=== PATIENT | male | born 1985 | race Caucasian/White ===

== ENCOUNTER 2017-03-07 17:53 | Emergency (ER) | payer SELFPAY ==
[~2017-03-07] VITALS: Ht 190.5 cm; Wt 145.0 kg
[~2017-03-07 17:53] MED LIST: ASPI81CH CHEW; NAPR500T PO; PERC5TAB12 PO; ZOFR4TAB3 SL
[2017-03-07 17:56] VITALS: BP 140/93; PULSE 72; RESP 17; TEMP 98.4; O2SAT 98
--- NOTE | 2017-03-07 18:41 | PD ---
HPI . Cough and shortness of breath for 2 days. Chief Complaint: Cold / Flu Symptoms Time Seen by Provider: 18:40 Travel History International Travel<30 days: No Contact w/Intl Traveler<30days: No Traveled to known affect area: No History of Present Illness HPI 31-year-old male with history of tobaccoism and history of gastritis when he was younger here with complaints of 2 days worth of shortness of breath and coughing. Patient says that then developed some coughing nonproductive that has been causing him pain in his chest and stomach. He denies any fever, sore throat, chills, nausea, vomiting etc. He also has some stomach discomfort. He tells me that approximately a week and a half ago he decided to take some anti- inflammatories for a tooth irritation. He was given some medications by a friend and does not know the name of it. He thinks this may have upset his stomach. He denies any melena, hematochezia or bowel changes. Guaiac was done at bedside, Solange PHELPS was present and the test was negative. PFS Past Medical History Anxiety: Yes Heart Rhythm Problems: No Cardiac Catheterization: No Cardiovascular Problems: No High Cholesterol: Yes Congestive Heart Failure: No Diabetes: No Diminished Hearing: No GERD: Yes Genitourinary: Yes (kidney stones ) Hypertension: Yes Psychiatric: Yes (hx anxiety and panic attacks) Past Surgical History Abdominal Surgery: Yes (CHANCE. INGUINAL HERNIOPLASTY A CHILD) Coronary Artery Bypass Graft: No Genitourinary Surgery: Yes Social History Alcohol Use: Yes (OCC) Tobacco Use: Yes Substance Use: Yes (MARIJUANA) Allergies-Medications (Allergen,Severity, Reaction): Coded Allergies: Lisinopril (Verified Allergy, Severe, HIVES, 10/04/16) "TATT00 LINES SWELL" Tylenol #3 (Verified Adverse Reaction, Severe, NAUSEA, 10/04/16) Reported Meds & Prescriptions Reported Meds & Active Scripts Active No Active Prescriptions or Reported Medications Review of Systems General / Constitutional: No: Fever Eyes: No: Visual changes HENT: No: Headaches Cardiovascular: No: Chest Pain or Discomfort Respiratory: Positive: Cough, Shortness of Breath Gastrointestinal: No: Abdominal Pain Genitourinary: No: Dysuria Musculoskeletal: No: Pain Skin: No Rash Neurologic: No: Weakness Psychiatric: No: Depression Endocrine: No: Polydipsia Hematologic/Lymphatic: No: Easy Bruising Physical Exam Narrative GENERAL: AAO x 3, no acute distress, Well-nourished, well-developed patient. SKIN: Warm and dry. No visible rashes or bruising. HEAD: Normocephalic and atraumatic. EYES: No scleral icterus. No injection or drainage. ENT: No nasal drainage noted. Mucous membranes pink. Airway patent. No posterior pharynx erythema, edema or exudates. TMs normal bilaterally NECK: Supple, trachea midline. No JVD. No lymphadenopathy CARDIOVASCULAR: Regular rate and rhythm without murmurs, gallops, or rubs. RESPIRATORY: Breath sounds equally diminished bilaterally. No accessory muscle use. No rhonchi or rales. Expiratory wheezing on examination. GASTROINTESTINAL: Abdomen soft, non-tender, nondistended. EXTREMITIES: No cyanosis or edema. BACK: Nontender without obvious deformity. No CVA tenderness. PSYCH: AAO x 3, normal affect. Data Data Last Documented VS Vital Signs Date Time Temp Pulse Resp B/P Pulse Ox O2 Delivery O2 Flow Rate FiO2 03/07/17 18:45 95 20 99 Room Air 03/07/17 17:56 98.4 140/93 MDM Medical Decision Making Medical Screen Exam Complete: Yes Emergency Medical Condition: Yes Medical Record Reviewed: Yes Differential Diagnosis Bronchitis, sinusitis, less likely pneumonia, less likely gastritis Narrative Course 31-year-old male with history of tobaccoism and history of gastritis when he was younger here with complaints of 2 days worth of shortness of breath and coughing. Patient says that then developed some coughing nonproductive that has been causing him pain in his chest and stomach. He denies any fever, sore throat, chills, nausea, vomiting etc. He also has some stomach discomfort. He tells me that approximately a week and a half ago he decided to take some anti- inflammatories for a tooth irritation. He was given some medications by a friend and does not know the name of it. He thinks this may have upset his stomach. He denies any melena, hematochezia or bowel changes. Guaiac was done at bedside, Solange PHELPS was present and the test was negative. Patient seen and examined. He has some wheezing on examination. I will check a chest x-ray, although I doubt any type of pneumonia. I've ordered DuoNeb. He more than likely has a bronchitis. His X-rays negative, he can be discharged home with prednisone, pro-air inhaler and Tessalon Perles. He'll need to follow-up with his primary care provider. His guaiac was negative. His abdominal examination is benign. I do not recommend any further workup. I discussed my treatment plan with him and he is in agreement. Patient verbalized understanding of instructions, questions were answered, and thanked me for their care. I advised them if their condition worsens, please return to the nearest emergency room for further care. Patient's care was transitioned over to the next provider coming on staff. He will determine disposition once the x-ray is resulted. Additional Instructions: As we discussed the cough can last 6-8 weeks. Take medications as prescribed. If you are a smoker, try to quit. Follow up with your primary care provider. If you develop sudden onset or worsening of shortness or breath, please go to the nearest emergency room. Please return to emergency department if your symptoms return or worsen. Follow up with your primary care provider. Take medications as prescribed. Scripts No Active Prescriptions or Reported Meds Condition: Stable Julee Irby Mar 07, 2017 18:41
[2017-03-07 18:45] VITALS: PULSE 95; RESP 20; O2SAT 99
[2017-03-07] MEDS ORDERED: SODIUM CHLORIDE 0.9% FLUSH 10 ML FLUSH IVF PRN (19:00)
[2017-03-07] MEDS ORDERED: RESP: ALBUTEROL 2.5 MG/IPRATROPIUM 0.5 MG NEB (SCH) INH ONE (19:00)
--- NOTE | 2017-03-07 19:19 | RADRPT ---
EXAM DATE/TIME: 03/07/2017 18:53 [facility] COMPARISON: No previous studies available for comparison. INDICATIONS : Short of breath, posterior distal chest pain. Denies injury MEDICAL HISTORY : Hypertension. SURGICAL HISTORY : None. ENCOUNTER: Initial ACUITY: 2 days PAIN SCORE: 3/10 LOCATION: Bilateral chest FINDINGS: A single view of the chest demonstrates the lungs to be symmetrically aerated without evidence of mas s, infiltrate or effusion. The cardiomediastinal contours are unremarkable. Osseous structures are intact. CONCLUSION: No acute disease. Isaiah Perales MD on March 07, 2017 at 19:17 Board Certified Radiologist. This report was verified electronically.
[2017-03-07] MEDS ORDERED: ALUMINUM/MAGNESIUM/SIMETH 30 ML CUP PO ONE (19:45)
[2017-03-07] MEDS ORDERED: LIDOCAINE VISCOUS 2% SOLN 15 ML UDC PO ONE (19:45)
[2017-03-07] MEDS ORDERED: PANTOPRAZOLE SOD 20 MG DELAYED RELEASE TAB PO ONE (19:45)
[2017-03-07] MEDS ORDERED: PRED20 PO (19:46)
[2017-03-07] MEDS ORDERED: CARA1TAB6 PO (19:46)
[2017-03-07] MEDS ORDERED: VENTAER INH (19:46)
[2017-03-07] MEDS ORDERED: PANT20 PO (19:46)
--- NOTE | 2017-03-07 19:49 | PD ---
Physical Exam Time Seen by Provider: 19:40 Data Data Last Documented VS Vital Signs Date Time Temp Pulse Resp B/P Pulse Ox O2 Delivery O2 Flow Rate FiO2 03/07/17 18:45 95 20 99 Room Air 03/07/17 17:56 98.4 140/93 Orders Chest, Single Ap (03/07/17 18:49) Sodium Chloride 0.9% Flush (Ns Flush) (03/07/17 19:00) Albuterol-Ipratropium Neb (Duoneb Neb) (03/07/17 19:00) Al-Mag Hy-Si 40-40-4 Mg/Ml Liq (Mag-Al P (03/07/17 19:45) Lidocaine 2% Viscous (Xylocaine 2% Visco (03/07/17 19:45) Pantoprazole (Protonix) (03/07/17 19:45) MDM Medical Record Reviewed: Yes Supervised Visit with DUNCAN: No Narrative Course I was asked to follow up in this patient's chest x-ray. See previous provider notes. Briefly this patient has had wheezing and cough and congestion for 2 days. On examination his wheezing bilaterally. He is not tachypneic or tachycardic. Chest x-ray is negative for pneumonia. He also endorses some left upper quadrant discomfort. He reports that he recently took some "anti- inflammatories" for tooth pain and he feels like his gastric ulcer pain is acting up. He describes it as a aching pain in left upper quadrant of the abdomen. His abdomen is soft and nontender and chest x-ray revealed no free air or so nothing to suggest a perforation. He is not currently on any antiacid producing medication so he'll be discharged with a 30 day course of Protonix. He is also requesting Carafate so he will be given a ten-day supply of that. He is being discharged with Ventolin inhaler and prednisone for bronchitis. Recommended outpatient follow-up. He is being given a GI cocktail and Protonix prior to discharge. Diagnosis Primary Impression: Bronchitis Additional Impression: Gastritis Qualified Code: K29.70 - Gastritis without bleeding, unspecified chronicity, unspecified gastritis type Additional Instruction: As we discussed the cough can last 6-8 weeks. Take medications as prescribed. If you are a smoker, try to quit. Follow up with your primary care provider. If you develop sudden onset or worsening of shortness or breath, please go to the nearest emergency room. Please return to emergency department if your symptoms return or worsen. Follow up with your primary care provider. Take medications as prescribed. Avoid [id number] naproxen/Advil/Motrin/Aleve/ibuprofen products which can aggravate "stomach ulcers." Follow-up closely with primary care physician. Med/Other Pt SpecificInfo: Prescription(s) given Scripts Pantoprazole (Protonix)20 Mg Tab20 Mg PO DAILY #30 TAB Ref 0 Prov:Lopez Billy MD 03/07/17 Albuterol 18 GM Inh (Ventolin Hfa 18 GM Inh)90 Mcg/Act Aer2 Puff INH Q4-6H PRN ( SHORTNESS OF BREATH) #1 INHALER Ref 0 Prov:Lopez Billy MD 03/07/17 Sucralfate (Carafate)1 Gm Tab1 Gm PO QID 14 Days Ref 0 On empty stomach Prov:Lopez Billy MD 03/07/17 Prednisone 20 Mg Tab20 Mg PO BID 5 Days Ref 0 Prov:Lopez Billy MD 03/07/17 Disposition: 01 DISCHARGE HOME Condition: Stable Soy Reyna Mar 07, 2017 19:49
[2017-03-07] MEDS ORDERED: predniSONE 20 MG TAB PO ONE (20:00)
== END 2017-03-07 20:22 | disposition home or self-care (01) ==
LOC: NEPD 17:53
DX: J40 Bronchitis, not specified as acute or chronic (principal); K29.70 Gastritis, unspecified, without bleeding; Z72.0 Tobacco use; I10 Essential (primary) hypertension; F41.0 Panic disorder [episodic paroxysmal anxiety]
CPT/HCPCS: 71010; 94664; 99284; J7512

== ENCOUNTER 2017-04-12 22:24 | Emergency (ER) | payer SELFPAY ==
[~2017-04-12] VITALS: Ht 188 cm; Wt 99.0 kg
[~2017-04-12 22:24] MED LIST changes: -ASPI81CH CHEW; +CARA1TAB6 PO; -NAPR500T PO; +PANT20 PO; -PERC5TAB12 PO; +PRED20 PO; +VENTAER INH; -ZOFR4TAB3 SL
[2017-04-12 22:26] VITALS: BP 179/95; PULSE 95; RESP 16; TEMP 98.1; O2SAT 99
[2017-04-12] MEDS ORDERED: AMOXICILLIN/CLAVULANATE K 875 MG TAB PO ONE (22:45)
[2017-04-12] MEDS ORDERED: KETOROLAC TROMETHAMINE 60 MG/2 ML (IM) VIAL IM ONE (22:45)
--- NOTE | 2017-04-12 22:58 | PD ---
HPI Chief Complaint: ENT Complaint Time Seen by Provider: 22:58 Travel History International Travel<30 days: No Contact w/Intl Traveler<30days: No Traveled to known affect area: No History of Present Illness HPI 31-year-old male presents to the emergency department for evaluation of right maxillary tooth pain 4 days with noted cheek swelling today. Patient states that he is having pain 8 out of 10 in this area. Denies any fever or chills. Denies any trauma to the area. Patient has had dental caries for quite some time and has not sought dental evaluation. He has no other symptoms to report. PFSH Past Medical History Anxiety: Yes Heart Rhythm Problems: No Cardiac Catheterization: No Cardiovascular Problems: No High Cholesterol: Yes Congestive Heart Failure: No Diabetes: No Diminished Hearing: No GERD: Yes Genitourinary: Yes (kidney stones ) Hypertension: Yes Psychiatric: Yes (hx anxiety and panic attacks) Immunizations Current: Yes Tetanus Vaccination: < 5 Years Influenza Vaccination: No Past Surgical History Abdominal Surgery: Yes (CHANCE. INGUINAL HERNIOPLASTY A CHILD) Coronary Artery Bypass Graft: No Genitourinary Surgery: Yes Social History Alcohol Use: Yes (OCC) Tobacco Use: Yes (PPD) Substance Use: Yes (MARIJUANA) Allergies-Medications (Allergen,Severity, Reaction): Coded Allergies: Lisinopril (Verified Allergy, Severe, HIVES, 04/12/17) "TATT00 LINES SWELL" Tylenol #3 (Verified Adverse Reaction, Severe, NAUSEA, 04/12/17) Reported Meds & Prescriptions Reported Meds & Active Scripts Active Ibuprofen 800 Mg Tab 800 Mg PO Q8H PRN Peridex Liq (Chlorhexidine Gluconate (Mouth) Liq) 0.12% Soln 15 Ml SWISH-SPIT BID Augmentin (Amoxicillin-Clavulanate) 875-125 mg Tab 875 Mg PO BID 10 Days not for use in CrCl <30 ml/min. Review of Systems Except as stated in HPI: all other systems reviewed are Neg Physical Exam Narrative GENERAL: Well-nourished, well-developed patient. SKIN: Focused skin assessment warm/dry. HEAD: Normocephalic. There is slight swelling along the right maxillary sinus. This is adjacent to her the patient has significant dental decay and gingival erythema. EYES: No scleral icterus. No injection or drainage. DENTAL: Utilize poor dentition. The right lateral incisor is broken in half. They first bicuspid on the maxillary is missing and the neighboring tooth is decayed down to the gingiva. There is gingival erythema and edema. No appreciable abscess that I can see from the inside of the mouth. No malocclusion. NECK: Supple, trachea midline. No JVD or lymphadenopathy. CARDIOVASCULAR: Regular rate and rhythm without murmurs, gallops, or rubs. RESPIRATORY: Breath sounds equal bilaterally. No accessory muscle use. GASTROINTESTINAL: Abdomen soft, non-tender, nondistended. MUSCULOSKELETAL: No cyanosis, or edema. BACK: Nontender without obvious deformity. No CVA tenderness. Data Data Last Documented VS Vital Signs Date Time Temp Pulse Resp B/P Pulse Ox O2 Delivery O2 Flow Rate FiO2 04/12/17 22:26 98.1 95 16 179/95 99 Room Air Orders Amoxicil-Clavulanate (Augmentin) (04/12/17 22:45) Ketorolac Inj (Toradol Inj) (04/12/17 22:45) MDM Medical Decision Making Medical Screen Exam Complete: Yes Emergency Medical Condition: Yes Medical Record Reviewed: Yes Differential Diagnosis Dental abscess versus sinusitis versus cellulitis versus periodontal disease versus gingivitis Narrative Course 31-year-old male presents to the emergency department for evaluation of dental pain and swelling. Patient appears without distress. Based on examination and history, this is likely dental abscess however I'm unable to visualize it on the inside the mouth. A cousin the area over the maxillary sinuses slightly edematous I will treat the patient with Augmentin in case this is more sinus exacerbated tooth pain versus dental abscess. Patient is instructed on care. He agrees to return immediately with any acute worsening symptoms. Diagnosis Primary Impression: Dental abscess Additional Impression: Dental caries Referrals: Dentist Primary Care Physician Patient Instructions: Dental Abscess (ED), General Instructions Departure Forms: Tests/Procedures, Work Release Enter return to work date: April 14, 2017 Additional Instructions: Avoid sleeping on the affected side Follow up with your primary care provider Seek dental evaluation as soon as possible Return to ED with acute worsening of symptoms Med/Other Pt SpecificInfo: Prescription(s) given Scripts Ibuprofen 800 Mg [id number] Mg PO Q8H PRN (Pain/Inflammation) #30 TAB Ref 0 Prov:Shaniqua Shah 04/12/17 Chlorhexidine Gluconate (Mouth) Liq (Peridex Liq)0.12% Soln15 Ml SWISH-SPIT BID #473 ML Ref 0 Prov:Shaniqua Shah 04/12/17 Amoxicillin-Clavulanate (Augmentin)875-125 mg [id number] Mg PO BID 10 Days Ref 0 not for use in CrCl <30 ml/min. Prov:Shaniqua Shah 04/12/17 Disposition: 01 DISCHARGE HOME Condition: Stable Shaniqua Shah April 12, 2017 22:58
[2017-04-12] MEDS ORDERED: AUGM875T PO (23:10)
[2017-04-12] MEDS ORDERED: PERI0.126 SWISH-SPIT (23:10)
[2017-04-12] MEDS ORDERED: IBUP800T23 PO (23:10)
== END 2017-04-12 23:33 | disposition home or self-care (01) ==
LOC: NEPK 22:24
DX: K04.7 Periapical abscess without sinus (principal); K02.9 Dental caries, unspecified; I10 Essential (primary) hypertension; F17.210 Nicotine dependence, cigarettes, uncomplicated; F12.90 Cannabis use, unspecified, uncomplicated
CPT/HCPCS: 96372; 99284; J1885

== ENCOUNTER 2017-04-14 21:20 | Emergency (ER) | payer SELFPAY ==
[~2017-04-14] VITALS: Ht 190.5 cm; Wt 143.0 kg
[~2017-04-14 21:20] MED LIST changes: +AUGM875T PO; -CARA1TAB6 PO; +IBUP800T23 PO; -PANT20 PO; +PERI0.126 SWISH-SPIT; -PRED20 PO; -VENTAER INH
[2017-04-14 21:21] VITALS: BP 184/92; PULSE 98; RESP 15; TEMP 97.6; O2SAT 100
--- NOTE | 2017-04-14 21:39 | PD ---
Physical Exam Time Seen by Provider: 21:36 Narrative 31yo M c/o worsening of dental abscess. Was seen here two days ago and has been taking Augmentin with worsening of symptoms. Denies fever, vomiting. Has not f/u with Dentist. Right facial swelling with worsening. Patient seen in triage. VS reviewed. Awaiting bed placement. Data Data Last Documented VS Vital Signs Date Time Temp Pulse Resp B/P Pulse Ox O2 Delivery O2 Flow Rate FiO2 04/14/17 21:21 97.6 98 15 184/92 100 Room Air MDM Supervised Visit with DUNCAN: Vesna Hodges April 14, 2017 21:39
--- NOTE | 2017-04-14 23:38 | PD ---
HPI Chief Complaint: Oral / Dental Pain or Problem Time Seen by Provider: 23:00 Travel History International Travel<30 days: No Contact w/Intl Traveler<30days: No Traveled to known affect area: No History of Present Illness HPI Patient is a 31-year-old male presents emergency primary for evaluation of right -sided facial swelling and dental pain. Patient states that he is cooperative his right canine on the maxillary side. Was here few days ago and was prescribed Augmentin states has not been improving. He has not been able to follow up with a dentist as he states he cannot afford to do so. Denies any fever denies any nausea vomiting chest pain shortness of breath or difficulty swallowing. PFSH Past Medical History Anxiety: Yes Heart Rhythm Problems: No Cardiac Catheterization: No Cardiovascular Problems: No High Cholesterol: Yes Congestive Heart Failure: No Diabetes: No Diminished Hearing: No GERD: Yes Genitourinary: Yes (kidney stones ) Hypertension: Yes Psychiatric: Yes (hx anxiety and panic attacks) Immunizations Current: Yes Tetanus Vaccination: < 5 Years Influenza Vaccination: No Past Surgical History Abdominal Surgery: Yes (CHANCE. INGUINAL HERNIOPLASTY A CHILD) Coronary Artery Bypass Graft: No Genitourinary Surgery: Yes Social History Alcohol Use: Yes (OCC) Tobacco Use: Yes (PPD) Substance Use: Yes (MARIJUANA) Allergies-Medications (Allergen,Severity, Reaction): Coded Allergies: Lisinopril (Verified Allergy, Severe, HIVES, 04/12/17) "TATT00 LINES SWELL" Tylenol #3 (Verified Adverse Reaction, Severe, NAUSEA, 04/12/17) Reported Meds & Prescriptions Reported Meds & Active Scripts Active Probiotic (Lactobacillus Acidophilus) 1 Cap Cap 1 Cap PO DAILY Ibuprofen 800 Mg Tab 800 Mg PO Q6HR PRN Tramadol (Tramadol HCl) 50 Mg Tab 50 Mg PO Q6H PRN Clindamycin (Clindamycin HCl) 300 Mg Cap 300 Mg PO Q6H 10 Days Review of Systems Except as stated in HPI: all other systems reviewed are Neg Physical Exam Narrative GENERAL: Well-nourished, well-developed patient. SKIN: Focused skin assessment warm/dry. HEAD: Normocephalic. EYES: No scleral icterus. No injection or drainage. ENT: Right-sided facial swelling minimal watery. No discrete abscesses felt. Multiple caries. TMs clear bilaterally, no lymphadenopathy pre-or postauricular or cervical, no sublingual tenderness. NECK: Supple, trachea midline. No JVD or lymphadenopathy. CARDIOVASCULAR: Regular rate and rhythm without murmurs, gallops, or rubs. RESPIRATORY: Breath sounds equal bilaterally. No accessory muscle use. GASTROINTESTINAL: Abdomen soft, non-tender, nondistended. MUSCULOSKELETAL: No cyanosis, or edema. BACK: Nontender without obvious deformity. No CVA tenderness. Data Data Last Documented VS Vital Signs Date Time Temp Pulse Resp B/P Pulse Ox O2 Delivery O2 Flow Rate FiO2 04/14/17 21:38 16 04/14/17 21:21 97.6 98 184/92 100 Room Air Orders Complete Blood Count With Diff (04/14/17 23:48) Comprehensive Metabolic Panel (04/14/17 23:48) Prothrombin Time / Inr (Pt) (04/14/17 23:48) Act Partial Throm Time (Ptt) (04/14/17 23:48) Ecg Monitoring (04/14/17 23:48) Iv Access Insert/Monitor (04/14/17 23:48) Oximetry (04/14/17 23:48) Oxygen Administration (04/14/17 23:48) Morphine Inj (Morphine Inj) (04/15/17 00:00) Sodium Chloride 0.9% Flush (Ns Flush) (04/15/17 00:00) Blood Culture (04/14/17 23:48) Ct Facial Bones W Iv Contrast (04/15/17 ) Clindamycin Inj (Cleocin Inj) (04/15/17 00:15) Iohexol 350 Inj (Omnipaque 350 Inj) (04/15/17 01:21) Labs Laboratory Tests Test 04/15/17 00:00 White Blood Count 8.7 TH/MM3 Red Blood Count 5.02 MIL/MM3 Hemoglobin 14.2 GM/DL Hematocrit 41.2 % Mean Corpuscular Volume 82.1 FL Mean Corpuscular Hemoglobin 28.4 PG Mean Corpuscular Hemoglobin 34.5 % Concent Red Cell Distribution Width 13.1 % Platelet Count 158 TH/MM3 Mean Platelet Volume 8.3 FL Neutrophils (%) (Auto) 60.6 % Lymphocytes (%) (Auto) 28.2 % Monocytes (%) (Auto) 6.8 % Eosinophils (%) (Auto) 3.9 % Basophils (%) (Auto) 0.5 % Neutrophils # (Auto) 5.2 TH/MM3 Lymphocytes # (Auto) 2.4 TH/MM3 Monocytes # (Auto) 0.6 TH/MM3 Eosinophils # (Auto) 0.3 TH/MM3 Basophils # (Auto) 0.0 TH/MM3 CBC Comment DIFF FINAL Differential Comment Prothrombin Time 10.6 SEC Prothromb Time International 1.0 RATIO Ratio Activated Partial 26.8 SEC Thromboplast Time Sodium Level 137 MEQ/L Potassium Level 3.9 MEQ/L Chloride Level 102 MEQ/L Carbon Dioxide Level 27.2 MEQ/L Anion Gap 8 MEQ/L Blood Urea Nitrogen 8 MG/DL Creatinine 0.88 MG/DL Estimat Glomerular Filtration 102 ML/MIN Rate Random Glucose 96 MG/DL Calcium Level 8.8 MG/DL Total Bilirubin 0.6 MG/DL Aspartate Amino Transf 23 U/L (AST/SGOT) Alanine Aminotransferase 50 U/L (ALT/SGPT) Alkaline Phosphatase 66 U/L Total Protein 8.0 GM/DL Albumin 4.0 GM/DL [facility] Medical Decision Making Medical Screen Exam Complete: Yes Emergency Medical Condition: Yes Differential Diagnosis Cellulitis, abscess, dental caries. Narrative Course Patient was roomed emergency department, no discrete abscess was felt. CAT scan of her face was ordered, patient was discussed with Dr. Raymundo for evaluation after CAT scan. Was given clindamycin 900 mg IV. Scripts Lactobacillus Acidophilus (Probiotic)1 Cap Cap1 Cap PO DAILY #10 CAP Ref 0 Prov:Nicki Raymundo DO 04/15/17 Ibuprofen 800 Mg [id number] Mg PO Q6HR PRN (PAIN) #40 TAB Ref 0 Prov:Nicki Raymundo DO 04/15/17 Tramadol 50 Mg Tab50 Mg PO Q6H PRN (PAIN) #10 TAB Ref 0 Prov:Nicki Raymundo DO 04/15/17 Clindamycin 300 Mg [id number] Mg PO Q6H 10 Days Ref 0 Prov:Nicki Raymundo DO 04/15/17 Ian Moise MD April 14, 2017 23:38
[2017-04-15] MEDS ORDERED: SODIUM CHLORIDE 0.9% FLUSH 10 ML FLUSH IVF PRN
[2017-04-15] MEDS ORDERED: MORPHINE SULFATE 4 MG/ML INJ IV PUSH ONE
[2017-04-15] MEDS ORDERED: CLINDAMYCIN INJ 900 MG in SODIUM CHLORIDE 0.9% INJ 100 ML IV ONE (00:15)
[2017-04-15 00:18] LABS: AUTOMATED NEUTROPHIL # 5.2 TH/MM3 (1.8-7.7); BASOPHIL % 0.5 % (0.0-2.0); EOSINOPHIL # 0.3 TH/MM3 (0-0.4); EOSINOPHIL % 3.9 % (0.0-4.0); HEMATOCRIT 41.2 % (39.0-51.0); HEMO FLAGS DIFF FINAL; LYMPH % 28.2 % (9.0-44.0); LYMPHOCYTE # 2.4 TH/MM3 (1.0-4.8); MEAN CELL VOLUME 82.1 FL (80.0-100.0); MEAN CORPUSCULAR HEMOGLOBIN 28.4 PG (27.0-34.0); MEAN CORPUSCULAR HGB CONC 34.5 % (32.0-36.0); MONO % 6.8 % (0.0-8.0); NEUT % 60.6 % (16.0-70.0); PLATELET COUNT 158 TH/MM3 (150-450); RED BLOOD COUNT 5.02 MIL/MM3 (4.50-5.90); RED CELL DISTRIBUTION WIDTH 13.1 % (11.6-17.2); WHITE BLOOD COUNT 8.7 TH/MM3 (4.0-11.0)
[2017-04-15 00:30] LABS: APTT (PATIENT) 26.8 SEC (24.3-30.1); PROTHROMBIN TIME - PATIENT 10.6 SEC (9.8-11.6)
[2017-04-15 01:00] LABS: ANION GAP 8 MEQ/L (5-15); AST (GOT) 23 U/L (15-37); BICARBONATE 27.2 MEQ/L (21.0-32.0); BLOOD UREA NITROGEN 8 MG/DL (7-18); CHLORIDE 102 MEQ/L (98-107); GLOMERULAR FILTRATION RATE 102 ML/MIN (>89); POTASSIUM 3.9 MEQ/L (3.5-5.1); SODIUM (NA) 137 MEQ/L (136-145)
[2017-04-15 01:03] LABS: ALKALINE PHOSPHATASE 66 U/L (45-117); ALT (GPT) 50 U/L (12-78); TOTAL BILIRUBIN ADULT 0.6 MG/DL (0.2-1.0)
[2017-04-15] MEDS ORDERED: IOHEXOL 350 MG/ML 10 ML VIAL (for RAD DIAG) IV ONE (01:21)
--- NOTE | 2017-04-15 01:41 | RADRPT ---
EXAM DATE/TIME: 04/15/2017 01:21 [facility] COMPARISON: No previous studies available for comparison. INDICATIONS : Right facial swelling. Possible dental abscess. IV CONTRAST: 100 cc Omnipaque 350 (iohexol) IV RADIATION DOSE: 57.90 CTDIvol (mGy) MEDICAL HISTORY : None SURGICAL HISTORY : None. ENCOUNTER: Initial ACUITY: 2 days PAIN SCALE: 10/10 LOCATION: Right facial TECHNIQUE: Volumetric scanning of the facial bones was performed. Using automated exposure control and adjustme nt of the mA and/or kV according to patient size, radiation dose was kept as low as reasonably achiev able to obtain optimal diagnostic quality images. FINDINGS: ORBITS: The orbital and infraorbital osseous structures are intact. The retroconal structures have a normal configuration. No radiopaque foreign bodies are seen. NASAL BONE: The nasal bone and maxillary spine are intact ZYGOMATIC ARCHES: Symmetric without evidence of fracture. SINUSES: The maxillary, ethmoid and frontal sinuses are intact. No air-fluid levels seen but there is some mu cosal thickening in the left maxillary sinus. NASAL CAVITY: The nasal septum is intact and midline. The lacrimal ducts are intact. SOFT TISSUES: No radiopaque foreign bodies seen. No soft-tissue swelling is seen. INTRACRANIAL: No intracranial air seen. CRIBIFORM PLATE: Grossly intact. CONCLUSION: Normal examination except mild mucosal thickening in the left maxillary sinus. Escobar Guillen MD on April 15, 2017 at 1:38 Board Certified Radiologist. This report was verified electronically.
[2017-04-15] MEDS ORDERED: TRAM50TA PO (01:52)
[2017-04-15] MEDS ORDERED: IBUP800T23 PO (01:52)
[2017-04-15] MEDS ORDERED: CLIN1CAP6 PO (01:52)
[2017-04-15] MEDS ORDERED: LACTCAP8 PO (01:54)
--- NOTE | 2017-04-15 01:54 | PD ---
Physical Exam Date Seen by Provider: April 15, 2017 Data Data Last Documented VS Vital Signs Date Time Temp Pulse Resp B/P Pulse Ox O2 Delivery O2 Flow Rate FiO2 04/14/17 21:38 16 04/14/17 21:21 97.6 98 184/92 100 Room Air Orders Complete Blood Count With Diff (04/14/17 23:48) Comprehensive Metabolic Panel (04/14/17 23:48) Prothrombin Time / Inr (Pt) (04/14/17 23:48) Act Partial Throm Time (Ptt) (04/14/17 23:48) Ecg Monitoring (04/14/17 23:48) Iv Access Insert/Monitor (04/14/17 23:48) Oximetry (04/14/17 23:48) Oxygen Administration (04/14/17 23:48) Morphine Inj (Morphine Inj) (04/15/17 00:00) Sodium Chloride 0.9% Flush (Ns Flush) (04/15/17 00:00) Blood Culture (04/14/17 23:48) Ct Facial Bones W Iv Contrast (04/15/17 ) Clindamycin Inj (Cleocin Inj) (04/15/17 00:15) Iohexol 350 Inj (Omnipaque 350 Inj) (04/15/17 01:21) Labs Laboratory Tests Test 04/15/17 00:00 White Blood Count 8.7 TH/MM3 Red Blood Count 5.02 MIL/MM3 Hemoglobin 14.2 GM/DL Hematocrit 41.2 % Mean Corpuscular Volume 82.1 FL Mean Corpuscular Hemoglobin 28.4 PG Mean Corpuscular Hemoglobin 34.5 % Concent Red Cell Distribution Width 13.1 % Platelet Count 158 TH/MM3 Mean Platelet Volume 8.3 FL Neutrophils (%) (Auto) 60.6 % Lymphocytes (%) (Auto) 28.2 % Monocytes (%) (Auto) 6.8 % Eosinophils (%) (Auto) 3.9 % Basophils (%) (Auto) 0.5 % Neutrophils # (Auto) 5.2 TH/MM3 Lymphocytes # (Auto) 2.4 TH/MM3 Monocytes # (Auto) 0.6 TH/MM3 Eosinophils # (Auto) 0.3 TH/MM3 Basophils # (Auto) 0.0 TH/MM3 CBC Comment DIFF FINAL Differential Comment Prothrombin Time 10.6 SEC Prothromb Time International 1.0 RATIO Ratio Activated Partial 26.8 SEC Thromboplast Time Sodium Level 137 MEQ/L Potassium Level 3.9 MEQ/L Chloride Level 102 MEQ/L Carbon Dioxide Level 27.2 MEQ/L Anion Gap 8 MEQ/L Blood Urea Nitrogen 8 MG/DL Creatinine 0.88 MG/DL Estimat Glomerular Filtration 102 ML/MIN Rate Random Glucose 96 MG/DL Calcium Level 8.8 MG/DL Total Bilirubin 0.6 MG/DL Aspartate Amino Transf 23 U/L (AST/SGOT) Alanine Aminotransferase 50 U/L (ALT/SGPT) Alkaline Phosphatase 66 U/L Total Protein 8.0 GM/DL Albumin 4.0 GM/DL [facility] Medical Record Reviewed: Yes Supervised Visit with DUNCAN: No Narrative Course Patient signed out to me by Dr. Moise at change of shift. Patient pending CT of the facial bones with IV contrast. Please see previous providers chart for full hpi Patient is a 31-year-old male who presents to emergency room with complaints of right-sided dental pain and facial swelling. Patient reports that he was seen here a few days ago and was started on Augmentin, reports that he still has pain to his tooth, he cannot afford to her dentist so he is here for evaluation. CBC & BMP Diagram 04/15/17 00:00 Labs are essentially unremarkable, ct shows: Last Impressions Maxillofacial CT 04/15/17 0000 Signed Impressions: Service Date/Time: March 01:21 - CONCLUSION: Normal examination except mild mucosal thickening in the left maxillary sinus. Escobar Guillen MD Patient was given IV clindamycin while emergency room. Plan to discharge patient home with a script for clindamycin. Patient will have to follow up with dental clinic for further dental workup. Signs and symptoms of when to return to the emergency room was reviewed patient in detail. A copy of patient' s CT report was given to him for follow-up with his physician. Diagnosis Primary Impression: Dental caries Patient Instructions: Narcotic given in the ED Departure Forms: Tests/Procedures, Work Release Enter return to work date: April 19, 2017 Additional Instruction: Please follow up with a dentist as soon as possible Please take antibiotics as prescribed Return to emergency room if symptoms worsen or progress Please follow up with all cultures from today Med/Other Pt SpecificInfo: Prescription(s) given Scripts Lactobacillus Acidophilus (Probiotic)1 Cap Cap1 Cap PO DAILY #10 CAP Ref 0 Prov:Nicki Raymundo DO 04/15/17 Ibuprofen 800 Mg [id number] Mg PO Q6HR PRN (PAIN) #40 TAB Ref 0 Prov:Nicki Raymundo DO 04/15/17 Tramadol 50 Mg Tab50 Mg PO Q6H PRN (PAIN) #10 TAB Ref 0 Prov:Nicki Raymundo DO 04/15/17 Clindamycin 300 Mg Fen020 Mg PO Q6H 10 Days Ref 0 Prov:Nicki Raymundo DO 04/15/17 Disposition: 01 DISCHARGE HOME Condition: Stable Nicki Raymundo DO April 15, 2017 01:54
[2017-04-16] MEDS ORDERED: ACET500L PO (02:15)
[2017-04-16] MEDS ORDERED: IBUP-232 PO (02:17)
== END 2017-04-15 02:06 | disposition home or self-care (01) ==
LOC: NEPD 21:20 → NEPC 04-15 02:06
DX: K02.9 Dental caries, unspecified (principal); I10 Essential (primary) hypertension; F17.210 Nicotine dependence, cigarettes, uncomplicated; F12.90 Cannabis use, unspecified, uncomplicated
CPT/HCPCS: 70487; 80053; 85025; 85610; 85730; 87040; 96365; 96375; 99285; J2270; Q9967

== ENCOUNTER 2017-04-15 23:41 | Emergency (ER) | payer SELFPAY ==
[~2017-04-15] VITALS: Ht 185.4 cm; Wt 99.0 kg
[~2017-04-15 23:41] MED LIST changes: -AUGM875T PO; +CLIN1CAP6 PO; +LACTCAP8 PO; -PERI0.126 SWISH-SPIT; +TRAM50TA PO
[2017-04-15 23:42] VITALS: BP 177/91; PULSE 102; RESP 16; TEMP 98.5; O2SAT 98
--- NOTE | 2017-04-16 01:04 | RADRPT ---
EXAM DATE/TIME: 04/16/2017 00:52 [place] COMPARISON: No previous studies available for comparison. INDICATIONS : Sore throat. MEDICAL HISTORY : None. SURGICAL HISTORY : None. ENCOUNTER: Initial ACUITY: 1 week PAIN SCORE: 4/10 LOCATION: Right neck FINDINGS: Two view examination of the soft tissues of the neck demonstrates the hypopharyngeal airway to have a grossly normal configuration. The trachea is midline. No radiopaque foreign bodies are seen. CONCLUSION: Normal examination. Escobar Guillen MD on April 16, 2017 at 1:03 Board Certified Radiologist. This report was verified electronically.
[2017-04-16] MEDS ORDERED: IBUPROFEN 600 MG TAB PO ONE (02:15)
[2017-04-16] MEDS ORDERED: ACET500L PO (02:15)
--- NOTE | 2017-04-16 02:15 | PD ---
HPI Chief Complaint: Edema Time Seen by Provider: 00:14 Travel History International Travel<30 days: No Contact w/Intl Traveler<30days: No Traveled to known affect area: No History of Present Illness HPI 31yo M presents to the ED with c/o progressive right facial swelling that is now going into his right neck. Denies any fever, drooling, sob, chest pain, n/v , abdominal pain. Pt was just here for right facial swelling and had CT facial yesterday that showed normal except mild mucosal thickening in left maxillary sinus. Pt had normal WBC. Pt able to eat and drink. States dental pain has resolved. Pain in right face has improved. Pt is on clindamycin. PFSH Past Medical History Anxiety: Yes Heart Rhythm Problems: No Cardiac Catheterization: No Cardiovascular Problems: No High Cholesterol: Yes Congestive Heart Failure: No Diabetes: No Diminished Hearing: No GERD: Yes Genitourinary: Yes (kidney stones ) Hypertension: Yes Psychiatric: Yes (hx anxiety and panic attacks) Immunizations Current: Yes Past Surgical History Abdominal Surgery: Yes (CHANCE. INGUINAL HERNIOPLASTY A CHILD) Coronary Artery Bypass Graft: No Genitourinary Surgery: Yes Social History Alcohol Use: Yes (OCC) Tobacco Use: Yes (PPD) Substance Use: Yes (MARIJUANA) Allergies-Medications (Allergen,Severity, Reaction): Coded Allergies: Lisinopril (Verified Allergy, Severe, HIVES, 04/12/17) "TATT00 LINES SWELL" Tylenol #3 (Verified Adverse Reaction, Severe, NAUSEA, 04/12/17) Reported Meds & Prescriptions Reported Meds & Active Scripts Active Ibuprofen 600 Mg Tab 600 Mg PO Q8H PRN Probiotic (Lactobacillus Acidophilus) 1 Cap Cap 1 Cap PO DAILY Ibuprofen 800 Mg Tab 800 Mg PO Q6HR PRN Tramadol (Tramadol HCl) 50 Mg Tab 50 Mg PO Q6H PRN Clindamycin (Clindamycin HCl) 300 Mg Cap 300 Mg PO Q6H 10 Days Review of Systems Except as stated in HPI: all other systems reviewed are Neg Physical Exam Narrative GENERAL: 31yo M not in distress. SKIN: Focused skin assessment warm/dry. HEAD: Atraumatic. Normocephalic. EYES: Pupils equal and round. No scleral icterus. No injection or drainage. ENT: No nasal bleeding or discharge. Mucous membranes pink and moist. Do not appreciate asymmetry. No periapical abscess in mouth. NECK: No swelling. Right anterior cervical lymph node. CARDIOVASCULAR: Regular rate and rhythm. No murmur appreciated. RESPIRATORY: No accessory muscle use. Clear to auscultation. Breath sounds equal bilaterally. GASTROINTESTINAL: Abdomen soft, non-tender, nondistended. MUSCULOSKELETAL: No obvious deformities. No clubbing. No cyanosis. No edema. NEUROLOGICAL: Awake and alert. No obvious cranial nerve deficits. Motor grossly within normal limits. Normal speech. PSYCHIATRIC: Appropriate mood and affect; insight and judgment normal. Data Data Last Documented VS Vital Signs Date Time Temp Pulse Resp B/P Pulse Ox O2 Delivery O2 Flow Rate FiO2 04/15/17 23:42 98.5 102 16 177/91 98 Room Air Orders Soft Tissue Neck (04/16/17 ) Ibuprofen (Motrin) (04/16/17 02:15) MDM Medical Decision Making Medical Screen Exam Complete: Yes Emergency Medical Condition: Yes Interpretation(s) Last Impressions Soft Tissue Neck X-Ray 04/16/17 0000 Signed Impressions: Service Date/Time: Sunday, April 16, 2017 00:52 - CONCLUSION: Normal examination. Escobar Guillen MD Differential Diagnosis Lymph adenopathy vs. retropharyngeal abscess vs. epiglottitis Narrative Course 31yo well appearing male here with c/o swelling in right neck. I do not appreciate swelling in neck on my exam. Xray soft tissue normal. Pt is eating and drinking normally. No SOB or drooling. Reassured pt and informed pt to follow up with PMD. Return precautions given. Diagnosis Primary Impression: Neck pain Patient Instructions: General Instructions Departure Forms: Tests/Procedures Additional Instructions: Please follow up with your PMD in 1-2 days. Return to the ED if symptoms worsen. Med/Other Pt SpecificInfo: Prescription(s) given Scripts Ibuprofen 600 Mg [id number] Mg PO Q8H PRN (PAIN) #20 TAB Ref 0 Prov:Lorena De Guzman DO 04/16/17 Disposition: 01 DISCHARGE HOME Condition: Stable Lorena De Guzman April 16, 2017 02:15
[2017-04-16] MEDS ORDERED: IBUP-232 PO (02:17)
== END 2017-04-16 02:30 | disposition home or self-care (01) ==
LOC: NEPE 23:41
DX: M54.2 Cervicalgia (principal)
CPT/HCPCS: 70360; 99283

== ENCOUNTER 2017-04-19 04:47 | Emergency (ER) | payer SELFPAY ==
[~2017-04-19] VITALS: Ht 185.4 cm; Wt 99.0 kg
[~2017-04-19 04:47] MED LIST changes: +IBUP-232 PO
[2017-04-19 04:49] VITALS: BP 162/95; PULSE 100; RESP 16; TEMP 98; O2SAT 99
[2017-04-19 05:02] VITALS: BP 175/112; PULSE 111; RESP 19; O2SAT 100
[2017-04-19 05:34] VITALS: O2SAT 100
[2017-04-19 05:38] LABS: AUTOMATED NEUTROPHIL # 4.7 TH/MM3 (1.8-7.7); BASOPHIL # 0.1 TH/MM3 (0-0.2); BASOPHIL % 0.7 % (0.0-2.0); EOSINOPHIL # 0.4 TH/MM3 (0-0.4); EOSINOPHIL % 4.5 % (0.0-4.0); HEMATOCRIT 44.1 % (39.0-51.0); HEMO FLAGS DIFF FINAL; LYMPH % 37.2 % (9.0-44.0); LYMPHOCYTE # 3.4 TH/MM3 (1.0-4.8); MEAN CELL VOLUME 82.8 FL (80.0-100.0); MEAN CORPUSCULAR HEMOGLOBIN 28.1 PG (27.0-34.0); MEAN CORPUSCULAR HGB CONC 33.9 % (32.0-36.0); MONO % 5.9 % (0.0-8.0); NEUT % 51.7 % (16.0-70.0); PLATELET COUNT 239 TH/MM3 (150-450); RED BLOOD COUNT 5.33 MIL/MM3 (4.50-5.90); RED CELL DISTRIBUTION WIDTH 13.3 % (11.6-17.2); WHITE BLOOD COUNT 9.1 TH/MM3 (4.0-11.0)
[2017-04-19 06:03] LABS: ANION GAP 9 MEQ/L (5-15); AST (GOT) 30 U/L (15-37); BLOOD UREA NITROGEN 10 MG/DL (7-18); CHLORIDE 104 MEQ/L (98-107); GLOMERULAR FILTRATION RATE 77 ML/MIN (>89); POTASSIUM 3.6 MEQ/L (3.5-5.1); SODIUM (NA) 140 MEQ/L (136-145)
[2017-04-19 06:06] LABS: ALKALINE PHOSPHATASE 66 U/L (45-117); ALT (GPT) 61 U/L (12-78); TOTAL BILIRUBIN ADULT 0.3 MG/DL (0.2-1.0)
[2017-04-19] MEDS ORDERED: KETOROLAC TROMETHAMINE 30 MG/ML (IVP) VIAL IV PUSH ONE (07:15)
[2017-04-19] MEDS ORDERED: SODIUM CHLOR 0.9% 1000 ML INJ 1,000 ML IV ONE (07:15)
--- NOTE | 2017-04-19 07:21 | PD ---
HPI Chief Complaint: Abdominal Pain Time Seen by Provider: 05:15 Travel History International Travel<30 days: No Contact w/Intl Traveler<30days: No Traveled to known affect area: No History of Present Illness HPI The patient is a 31 year old male who presents to the [facility] emergency department with a history of abdominal pain that began 2 days ago. It comes and goes. It has been associated with loose stool. He reports that the stool is soft and brown. He has had soft stool. He reports that he has had nausea without vomiting. The patient reports that the pain began 2 days after starting clindamycin for a dental infection. The patient reports that his dental infection has improved, however as he was concerned that the symptoms were related to the clindamycin antibiotic, he discontinued this. He reports that prior to this he was on amoxicillin. The patient denies any recent fevers, cough, congestion, neck pain, urinary symptoms, or neurologic symptoms. PFSH Past Medical History Narrative Medical The patient's past medical history is significant for dental infection, hypertension, anxiety disorder. PCP-none. Anxiety: Yes Heart Rhythm Problems: No Cardiac Catheterization: No Cardiovascular Problems: No High Cholesterol: Yes Congestive Heart Failure: No Diabetes: No Diminished Hearing: No GERD: Yes Genitourinary: Yes (kidney stones ) Hypertension: Yes Psychiatric: Yes (hx anxiety and panic attacks) Immunizations Current: Yes Tetanus Vaccination: < 5 Years Influenza Vaccination: Yes Past Surgical History Narrative Surgical The patient's past surgical history is significant for hernia repair as a child. Surgical History: No Previous Surgery Abdominal Surgery: Yes (CHANCE. INGUINAL HERNIOPLASTY A CHILD) Coronary Artery Bypass Graft: No Genitourinary Surgery: Yes Social History Alcohol Use: Yes (OCC) Tobacco Use: Yes (1/2 ppd) Substance Use: Yes (MARIJUANA occ) Allergies-Medications (Allergen,Severity, Reaction): Coded Allergies: Lisinopril (Verified Allergy, Severe, HIVES, 04/12/17) "TATT00 LINES SWELL" Tylenol #3 (Verified Adverse Reaction, Severe, NAUSEA, 04/12/17) Reported Meds & Prescriptions Reported Meds & Active Scripts Active Zofran Odt (Ondansetron Odt) 4 Mg Tab 4 Mg SL Q6HR PRN Ibuprofen 800 Mg Tab 800 Mg PO Q6HR PRN Tramadol (Tramadol HCl) 50 Mg Tab 50 Mg PO Q6H PRN Clindamycin (Clindamycin HCl) 300 Mg Cap 300 Mg PO Q6H 10 Days Review of Systems Except as stated in HPI: all other systems reviewed are Neg General / Constitutional: No: Fever Eyes: No: Visual changes HENT: No: Headaches Cardiovascular: No: Chest Pain or Discomfort Respiratory: No: Shortness of Breath Gastrointestinal: Positive: Nausea, Diarrhea, Abdominal Pain, Changes in Bowel Habits, Indigestion, No: Vomiting, Hematemesis, Hematochezia, Constipation, Loss of Appetite Genitourinary: No: Dysuria Musculoskeletal: No: Pain Skin: No Rash Neurologic: No: Weakness Psychiatric: No: Depression Endocrine: No: Polydipsia Hematologic/Lymphatic: No: Easy Bruising Physical Exam Narrative General: The patient is well-developed well-nourished female in no acute distress. Head and Neck exam: Head is normocephalic atraumatic. Eyes: EOMI, pupils are equal round and reactive to light. Nose: Midline septum with pink mucous membranes Mouth: Dentition unremarkable. No facial swelling noted. Moist mucus membranes. Posterior oropharynx is not erythematous. No tonsillar hypertrophy. Uvula midline. Airway patent. Neck: No palpable lymphadenopathy. No nuchal rigidity. No thyromegaly. Cardiovascular: Sinus tachycardia in the low 100s without murmurs, gallops, or rubs. No pulse deficit to the extremities on simultaneous auscultation and palpation of his radial artery. Lungs: Clear to auscultation bilaterally. No wheezes, rhonchi, or rales. Abdomen: Soft, without tenderness to palpation in all 4 quadrants of the abdomen. No guarding, rebound, or rigidity. Normal bowel sounds are audible. No tenderness on palpation of McBurney's point. Negative Lira's sign. Extremities: No clubbing, cyanosis, or edema. 2+ pulses in all 4 extremities. No Tenderness on palpation. Back: No spinous process tenderness to palpation. No costovertebral angle tenderness to palpation. Neurologic Exam: Grossly nonfocal. Skin Exam: No rash noted. Intact skin that is warm and dry. Data Data Last Documented VS Vital Signs Date Time Temp Pulse Resp B/P Pulse Ox O2 Delivery O2 Flow Rate FiO2 04/19/17 08:38 90 18 168/90 98 04/19/17 05:34 Room Air 04/19/17 04:49 98.0 Orders Complete Blood Count With Diff (04/19/17 05:17) Comprehensive Metabolic Panel (04/19/17 05:17) Lipase (04/19/17 05:17) Urinalysis - C+S If Indicated (04/19/17 05:17) Iv Access Insert/Monitor (04/19/17 05:17) Ecg Monitoring (04/19/17 05:17) Oximetry (04/19/17 05:17) Electrocardiogram (04/19/17 05:37) Sodium Chlor 0.9% 1000 Ml Inj (Ns 1000 M (04/19/17 07:15) Ketorolac Inj (Toradol Inj) (04/19/17 07:15) Ondansetron Inj (Zofran Inj) (04/19/17 07:30) Labs Laboratory Tests Test 04/19/17 04/19/17 05:20 08:40 White Blood Count 9.1 TH/MM3 Red Blood Count 5.33 MIL/MM3 Hemoglobin 15.0 GM/DL Hematocrit 44.1 % Mean Corpuscular Volume 82.8 FL Mean Corpuscular Hemoglobin 28.1 PG Mean Corpuscular Hemoglobin 33.9 % Concent Red Cell Distribution Width 13.3 % Platelet Count 239 TH/MM3 Mean Platelet Volume 8.6 FL Neutrophils (%) (Auto) 51.7 % Lymphocytes (%) (Auto) 37.2 % Monocytes (%) (Auto) 5.9 % Eosinophils (%) (Auto) 4.5 % Basophils (%) (Auto) 0.7 % Neutrophils # (Auto) 4.7 TH/MM3 Lymphocytes # (Auto) 3.4 TH/MM3 Monocytes # (Auto) 0.5 TH/MM3 Eosinophils # (Auto) 0.4 TH/MM3 Basophils # (Auto) 0.1 TH/MM3 CBC Comment DIFF FINAL Differential Comment Sodium Level 140 MEQ/L Potassium Level 3.6 MEQ/L Chloride Level 104 MEQ/L Carbon Dioxide Level 27.0 MEQ/L Anion Gap 9 MEQ/L Blood Urea Nitrogen 10 MG/DL Creatinine 1.13 MG/DL Estimat Glomerular Filtration 77 ML/MIN Rate Random Glucose 117 MG/DL Calcium Level 9.2 MG/DL Total Bilirubin 0.3 MG/DL Aspartate Amino Transf 30 U/L (AST/SGOT) Alanine Aminotransferase 61 U/L (ALT/SGPT) Alkaline Phosphatase 66 U/L Total Protein 8.5 GM/DL Albumin 4.3 GM/DL Lipase 134 U/L Urine Color YELLOW Urine Turbidity CLEAR Urine pH 5.0 Urine Specific [place] 1.025 Urine Protein TRACE mg/dL Urine Glucose (UA) NEG mg/dL Urine Ketones NEG mg/dL Urine Occult Blood NEG Urine Nitrite NEG Urine Bilirubin NEG Urine Urobilinogen LESS THAN 2.0 MG/DL Urine Leukocyte Esterase NEG Urine RBC 7 /hpf Urine Squamous Epithelial <1 /hpf Cells Urine Hyaline Casts 8 /lpf Microscopic Urinalysis Comment CULT NOT INDICATED MDM Medical Decision Making Medical Screen Exam Complete: Yes Emergency Medical Condition: Yes Medical Record Reviewed: Yes Differential Diagnosis C. difficile colitis, versus diarrhea induced by antibiotic use, versus electrolyte derangements, versus dehydration Narrative Course During the course of the patients emergency department visit, the patients history, examination, and differential diagnosis were reviewed with the patient. The patient had IV access obtained and blood work sent for analysis. The patient had an EKG done on arrival that shows a sinus tachycardia rate of 107, no acute ST segment elevation or depression, T waves are inverted in leads 1, 2, aVL, V6. Stool studies were ordered in this patient. The patient was initially provided normal saline 1 L IV fluid bolus, Toradol 15 mg IV, Zofran 4 mg IV. The patients laboratory studies were reviewed and remarkable for a white count of 9.1, hemoglobin 15, platelets 239 with 4.5 eosinophils, CMP is remarkable for glucose 117, total protein 8.5, lipase 134, urinalysis is unremarkable. The patient was unable to provide a stool sample to rule out C. difficile. The patient will be given an outpatient lab slip for stool studies. He has discontinued the clindamycin. Given the patient's recent dental infection and he is instructed to continue and complete her course of amoxicillin previously prescribed and follow-up with a dentist as soon as possible. The patient was given a prescription for Zofran for nausea. The patient is resting comfortably and feels better, is alert and in no distress. The patients results and examination findings were discussed with the patient. The repeat examination is unremarkable and benign. The history, exam, diagnostic testing, and current condition do not suggest any significant pathology to warrant further testing, continued ED treatment, admission, or surgical evaluation at this point. The vital signs have been stable. The patient does not have uncontrollable pain, intractable vomiting, or other significant symptoms. The patient's condition is stable and appropriate for discharge. The patient will pursue further outpatient evaluation with a primary care physician or other designated or consulting physician as indicated in the discharge instructions. The patient expressed understanding and was agreeable with this plan. Diagnosis Primary Impression: Abdominal pain Qualified Code: R10.84 - Generalized abdominal pain Additional Impression: Diarrhea Qualified Code: R19.7 - Diarrhea, unspecified type Referrals: Edouard Felton MD 3 days Primary Care Physician Patient Instructions: Abdominal Pain (ED), Acute Diarrhea (ED), General Instructions Additional Instructions: The patient is given an outpatient lab slip for stool studies. Med/Other Pt SpecificInfo: Prescription(s) given Scripts Ondansetron Odt (Zofran Odt)4 Mg Tab4 Mg SL Q6HR PRN (Nausea/Vomiting) #7 TAB Ref 0 Prov:Clara Mcdaniels MD 04/19/17 Disposition: 01 DISCHARGE HOME Condition: Stable Clara Mcdaniels MD April 19, 2017 07:21
[2017-04-19] MEDS ORDERED: ONDANSETRON HCL 4 MG/2 ML VIAL IV ONE (07:30)
[2017-04-19] MEDS ORDERED: ZOFR4TAB3 SL (07:58)
--- NOTE | 2017-04-19 08:12 | EKG ---
Date Performed: 04/19/2017 Time Performed: 05:09:37 PTAGE: 31 years EKG: SINUS TACHYCARDIA NONSPECIFIC T-WAVE ABNORMALITY ABNORMAL ECG Compared to prior electrocard iogram,T-wave changes are slightly more prominent. PREVIOUS TRACING : 12/20/2012 16.46 DOCTOR: Teddy Mayes Interpretating Date/Time 04/19/2017 08:11:49
[2017-04-19 08:25] VITALS: RESP 18
[2017-04-19 08:38] VITALS: BP 168/90
[2017-04-19 09:05] LABS: BLOOD, URINE NEG (NEG); COMMENT (UR) CULT NOT INDICATED; CULTURE IF INDICATED CULT NOT INDICATED; GLUCOSE,URINE NEG (NEG); HYALINE CAST, URINE 8 /lpf (RARE); KETONE, URINE NEG (NEG); NITRITE,URINE NEG (NEG); SQUAMOUS EPITHELIAL CELL URINE <1 /hpf (0-5); URINE COLOR YELLOW (YELLW/STRAW)
== END 2017-04-19 08:51 | disposition home or self-care (01) ==
LOC: NEPE 04:47
DX: R10.84 Generalized abdominal pain (principal); R19.7 Diarrhea, unspecified; I10 Essential (primary) hypertension; F17.210 Nicotine dependence, cigarettes, uncomplicated; R94.31 Abnormal electrocardiogram [ECG] [EKG]
CPT/HCPCS: 80053; 81001; 83690; 85025; 93005; 96361; 96374; 96375; 99284; J1885; J2405; J7030

== ENCOUNTER 2017-04-21 13:35 | Emergency (ER) | payer SELFPAY ==
[~2017-04-21] VITALS: Ht 190.5 cm; Wt 145.7 kg
[~2017-04-21 13:35] MED LIST changes: -IBUP-232 PO; -LACTCAP8 PO; +ZOFR4TAB3 SL
[2017-04-21 13:46] VITALS: BP 167/110; PULSE 96; RESP 16; TEMP 98.3; O2SAT 99
--- NOTE | 2017-04-21 15:04 | PD ---
HPI Chief Complaint: Abdominal Pain Time Seen by Provider: 14:17 Travel History International Travel<30 days: No Contact w/Intl Traveler<30days: No Traveled to known affect area: No History of Present Illness HPI 31-year-old male complains of diarrhea, paste like stool, total abdominal pain, palpitations and the sensation as if his body is humming. He took Clindamycin recently is concerned he may have C diff colitis. No fever. Appetite normal. duration of symptoms is 4 days. He was seen here 2 days ago and underwent extensive evaluation which was unremarkable. He was discharged with a prescription for C. difficile stool sample however he did not fill it. He believes the entirety of the symptomatology is secondary to a course of antibiotics which he took for a presumed dental infection. No vomiting. PFSH Past Medical History Anxiety: Yes Heart Rhythm Problems: No Cardiac Catheterization: No Cardiovascular Problems: No High Cholesterol: Yes Congestive Heart Failure: No Diabetes: No Diminished Hearing: No GERD: Yes Genitourinary: Yes (kidney stones ) Hypertension: Yes Psychiatric: Yes (hx anxiety and panic attacks) Immunizations Current: Yes Past Surgical History Abdominal Surgery: Yes (CHANCE. INGUINAL HERNIOPLASTY A CHILD) Coronary Artery Bypass Graft: No Genitourinary Surgery: Yes Social History Alcohol Use: Yes (weekends only approx 10 shots) Tobacco Use: Yes (1/2 ppd) Substance Use: Yes (MARIJUANA occ) Allergies-Medications (Allergen,Severity, Reaction): Coded Allergies: Lisinopril (Verified Allergy, Severe, HIVES, 04/12/17) "TATT00 LINES SWELL" Tylenol #3 (Verified Adverse Reaction, Severe, NAUSEA, 04/12/17) Reported Meds & Prescriptions Reported Meds & Active Scripts Active Zofran Odt (Ondansetron Odt) 4 Mg Tab 4 Mg SL Q6HR PRN Ibuprofen 800 Mg Tab 800 Mg PO Q6HR PRN Tramadol (Tramadol HCl) 50 Mg Tab 50 Mg PO Q6H PRN Clindamycin (Clindamycin HCl) 300 Mg Cap 300 Mg PO Q6H 10 Days Review of Systems Except as stated in HPI: all other systems reviewed are Neg General / Constitutional: No: Fever, Chills Gastrointestinal: Positive: Abdominal Pain Physical Exam Narrative GENERAL: 31-year-old male well-nourished well-developed RECTAL: Internal hemorrhoids present. Guaiac positive mucus-like rectal discharge. No external hemorrhoid. No fissure/fistula. SKIN: Focused skin assessment warm/dry. HEAD: Atraumatic. Normocephalic. EYES: Pupils equal and round. No scleral icterus. No injection or drainage. ENT: No nasal bleeding or discharge. Mucous membranes pink and moist. NECK: Trachea midline. No JVD. CARDIOVASCULAR: Regular rate and rhythm. No murmur appreciated. RESPIRATORY: No accessory muscle use. Clear to auscultation. Breath sounds equal bilaterally. GASTROINTESTINAL: Soft. No focus of infection. Nonspecific voluntary guarding. MUSCULOSKELETAL: No obvious deformities. No clubbing. No cyanosis. No edema. NEUROLOGICAL: Awake and alert. No obvious cranial nerve deficits. Motor grossly within normal limits. Normal speech. PSYCHIATRIC: Appropriate mood and affect; insight and judgment normal. Data Data Last Documented VS Vital Signs Date Time Temp Pulse Resp B/P Pulse Ox O2 Delivery O2 Flow Rate FiO2 04/21/17 13:46 98.3 96 16 167/110 99 Vital signs reviewed Orders C Diff Toxin Pcr (04/21/17 15:07) Labs Laboratory Tests Test 04/21/17 15:33 Stool C. difficile Toxin (PCR) NEGATIVE Stl C. difficile Toxin PRESUMPTIVE Epiderm 027 NEGATIVE MDM Medical Decision Making Medical Screen Exam Complete: Yes Emergency Medical Condition: Yes Medical Record Reviewed: Yes Differential Diagnosis Constipation, Gastritis, Acute Cholecystitis, Biliary Colic, Pancreatitis, CALERO , Hepatitis, Bowel Obstruction, Cystitis, Mesenteric Ischemia, AAA, Appendicitis , Renal Stone/Hydronephrosis, GERD, perforated viscous Narrative Course We had a long discussion about possible etiologies of the patient's pain. He does have internal hemorrhoids on exam. Metamucil discussed as well as Preparation H. The patient is really very concerned about whether or not he has C. difficile colitis. As it is not a gross violation of any standard of care , we'll collect a sample of pt's stool for a c diff assay. Patient reassured at great length. Diagnosis Primary Impression: Abdominal pain Qualified Code: R10.9 - Abdominal pain, unspecified location Additional Impression: Bloody stool Referrals: [facility] 2 days Additional Instructions: You have a choice when it comes to health care, and we are glad that you chose [facility]. Hopefully, we have met your expectations on today's visit. You are welcome to return to [facility] at any time, as we are committed to meeting the health care needs of our community. Med/Other Pt SpecificInfo: No Change to Meds Disposition: 01 DISCHARGE HOME Condition: Mario Figueroa MD April 21, 2017 15:04
[2017-04-21 17:51] LABS: C. DIFF EPI 027 PRESUMPTIVE NEGATIVE (NEGATIVE); C. DIFF TOXIN PCR NEGATIVE (NEGATIVE)
== END 2017-04-21 15:53 | disposition home or self-care (01) ==
LOC: PHED 13:35
DX: R10.9 Unspecified abdominal pain (principal); K92.1 Melena; K64.8 Other hemorrhoids; F41.9 Anxiety disorder, unspecified; E78.00 Pure hypercholesterolemia, unspecified; K21.9 Gastro-esophageal reflux disease without esophagitis; I10 Essential (primary) hypertension; F17.200 Nicotine dependence, unspecified, uncomplicated; Z79.899 Other long term (current) drug therapy
CPT/HCPCS: 87493; 99283

== ENCOUNTER 2017-08-04 04:10 | Emergency (ER) | payer SELFPAY ==
[~2017-08-04] VITALS: Ht 190.5 cm; Wt 143.0 kg
[2017-08-04 04:12] VITALS: BP 178/106; PULSE 87; RESP 18; TEMP 97.8; O2SAT 100
[2017-08-04 06:51] VITALS: BP 145/92; PULSE 83; RESP 18; O2SAT 100
[2017-08-04] MEDS ORDERED: SODIUM CHLOR 0.9% 1000 ML INJ 1,000 ML IV SCH (07:21)
[2017-08-04] MEDS ORDERED: SODIUM CHLORIDE 0.9% FLUSH 10 ML FLUSH IV FLUSH PRN (07:30)
[2017-08-04 07:59] LABS: AUTOMATED NEUTROPHIL # 3.9 TH/MM3 (1.8-7.7); BASOPHIL # 0.1 TH/MM3 (0-0.2); BASOPHIL % 0.8 % (0.0-2.0); EOSINOPHIL # 0.5 TH/MM3 (0-0.4); HEMO FLAGS DIFF FINAL; LYMPH % 36.7 % (9.0-44.0); LYMPHOCYTE # 2.9 TH/MM3 (1.0-4.8); MEAN CELL VOLUME 83.7 FL (80.0-100.0); MEAN CORPUSCULAR HGB CONC 34.6 % (32.0-36.0); MONO % 5.6 % (0.0-8.0); NEUT % 49.9 % (16.0-70.0); PLATELET COUNT 168 TH/MM3 (150-450); RED BLOOD COUNT 5.14 MIL/MM3 (4.50-5.90); RED CELL DISTRIBUTION WIDTH 13.4 % (11.6-17.2); WHITE BLOOD COUNT 7.8 TH/MM3 (4.0-11.0)
[2017-08-04] MEDS ORDERED: RANI150T PO (08:09)
--- NOTE | 2017-08-04 08:09 | PD ---
HPI Chief Complaint: Abdominal Pain Time Seen by Provider: 07:09 Travel History International Travel<30 days: No Contact w/Intl Traveler<30days: No Traveled to known affect area: No History of Present Illness HPI Is a 31-year-old man who presents to the emergency room complaining of abdominal pain. He states for the past week or so he's had pain and pressure and fullness in his upper abdomen. He also complains of heart palpitations, brown spots on his hands, and shaking feeling below the waist. Said nausea for the past 8 hours or so. His appetite been good. Pain has been a little bit worse after eating. No urinary symptoms. He states his bowel movements have been a little bit soft and is gone multiple times in the past 24 hours. No other complaints. States symptoms were exacerbated after drinking alcohol heavily several nights ago. History Past Medical History Narrative Medical Hypertension Social History Alcohol Use: Yes (WEEKENDS) Tobacco Use: Yes (1 PPD) Allergies-Medications (Allergen,Severity, Reaction): Coded Allergies: lisinopril (Unverified Allergy, Severe, HIVES, 08/04/17) "TATT00 LINES SWELL" acetaminophen (Unverified Adverse Reaction, Severe, NAUSEA, 08/04/17) codeine (Unverified Adverse Reaction, Severe, NAUSEA, 08/04/17) Reported Meds & Prescriptions Reported Meds & Active Scripts Active No Active Prescriptions or Reported Medications Review of Systems Except as stated in HPI: all other systems reviewed are Neg Physical Exam Narrative GENERAL: Well-appearing 31-year-old man, no acute distress. SKIN: Focused skin assessment warm/dry. HEAD: Atraumatic. Normocephalic. CARDIOVASCULAR: Regular rate and rhythm. No murmur appreciated. RESPIRATORY: No accessory muscle use. Clear to auscultation. Breath sounds equal bilaterally. GASTROINTESTINAL: Abdomen is obese and soft. Is no significant tenderness. No rebound or guarding. No organomegaly. NEUROLOGICAL: Awake and alert. No obvious cranial nerve deficits. Motor grossly within normal limits. Normal speech. PSYCHIATRIC: Appropriate mood and affect; insight and judgment normal. Data Data Last Documented VS Vital Signs Date Time Temp Pulse Resp B/P (MAP) Pulse Ox O2 Delivery O2 Flow Rate FiO2 08/04/17 08:25 80 17 134/88 (103) 100 Room Air 08/04/17 04:12 97.8 Orders Orders Complete Blood Count With Diff (08/04/17 07:21) Comprehensive Metabolic Panel (08/04/17 07:21) Lipase (08/04/17 07:21) Urinalysis - C+S If Indicated (08/04/17 07:21) Iv Access Insert/Monitor (08/04/17 07:21) Ecg Monitoring (08/04/17 07:21) Oximetry (08/04/17 07:21) Sodium Chlor 0.9% 1000 Ml Inj (Ns 1000 M (08/04/17 07:21) Sodium Chloride 0.9% Flush (Ns Flush) (08/04/17 07:30) Chest, Single Ap (08/04/17 07:21) Ed Poc Ultrasound (08/04/17 ) Ed Poc Ultrasound (08/04/17 ) Labs Laboratory Tests Test 08/04/17 07:40 White Blood Count 7.8 TH/MM3 Red Blood Count 5.14 MIL/MM3 Hemoglobin 14.9 GM/DL Hematocrit 43.0 % Mean Corpuscular Volume 83.7 FL Mean Corpuscular Hemoglobin 29.0 PG Mean Corpuscular Hemoglobin Concent 34.6 % Red Cell Distribution Width 13.4 % Platelet Count 168 TH/MM3 Mean Platelet Volume 9.0 FL Neutrophils (%) (Auto) 49.9 % Lymphocytes (%) (Auto) 36.7 % Monocytes (%) (Auto) 5.6 % Eosinophils (%) (Auto) 7.0 % Basophils (%) (Auto) 0.8 % Neutrophils # (Auto) 3.9 TH/MM3 Lymphocytes # (Auto) 2.9 TH/MM3 Monocytes # (Auto) 0.4 TH/MM3 Eosinophils # (Auto) 0.5 TH/MM3 Basophils # (Auto) 0.1 TH/MM3 CBC Comment DIFF FINAL Differential Comment Urine Color YELLOW Urine Turbidity CLEAR Urine pH 5.0 Urine Specific [place] 1.019 Urine Protein NEG mg/dL Urine Glucose (UA) NEG mg/dL Urine Ketones NEG mg/dL Urine Occult Blood NEG Urine Nitrite NEG Urine Bilirubin NEG Urine Urobilinogen LESS THAN 2.0 MG/DL Urine Leukocyte Esterase NEG Urine RBC LESS THAN 1 /hpf Urine WBC LESS THAN 1 /hpf Microscopic Urinalysis Comment CULT NOT INDICATED Blood Urea Nitrogen 10 MG/DL Creatinine 0.97 MG/DL Random Glucose 99 MG/DL Total Protein 8.1 GM/DL Albumin 4.1 GM/DL Calcium Level 8.7 MG/DL Alkaline Phosphatase 59 U/L Aspartate Amino Transf (AST/SGOT) 34 U/L Alanine Aminotransferase (ALT/SGPT) 61 U/L Total Bilirubin 0.5 MG/DL Sodium Level 139 MEQ/L Potassium Level 4.0 MEQ/L Chloride Level 106 MEQ/L Carbon Dioxide Level 26.0 MEQ/L Anion Gap 7 MEQ/L Estimat Glomerular Filtration Rate 92 ML/MIN Lipase 157 U/L [facility] Medical Decision Making Medical Screen Exam Complete: Yes Emergency Medical Condition: Yes Interpretation(s) LABS: CBC is unremarkable. CMP is unremarkable. Lipase normal. UA unremarkable. Differential Diagnosis Gastritis, pancreatitis, cholecystitis, other Narrative Course Medical decision making INITIAL calls a 31-year-old man who presents to the emergency department complaining of abdominal pain. Seems his symptoms started after drinking heavily. Is likely gastritis. Cholecystitis seems less likely. Weight other unusual symptoms including brown spots in his hands, palpitations, and legs shaking. This may be anxiety related. He looks well. Benign exam. Recommend outpatient follow-up. Diagnosis Primary Impression: Gastritis Patient Instructions: General Instructions Additional Instructions: Take ranitidine as prescribed. Albeit her primary doctor in the next 2-4 days. Return to the emergency department for any new or worsening symptoms. Med/Other Pt SpecificInfo: Prescription(s) given Scripts No Active Prescriptions or Reported Meds Disposition: 01 DISCHARGE HOME Condition: Stable Escobar Valadez MD Aug 04, 2017 08:09
[2017-08-04 08:14] LABS: ALT (GPT) 61 U/L (12-78); ANION GAP 7 MEQ/L (5-15); AST (GOT) 34 U/L (15-37); BLOOD UREA NITROGEN 10 MG/DL (7-18); CHLORIDE 106 MEQ/L (98-107); GLOMERULAR FILTRATION RATE 92 ML/MIN (>89); SODIUM (NA) 139 MEQ/L (136-145)
--- NOTE | 2017-08-04 08:14 | RADRPT ---
EXAM DATE/TIME: 08/04/2017 07:49 [facility] COMPARISON: CHEST SINGLE AP, March 07, 2017, 18:53. INDICATIONS : Chest pain, cough, and nausea. MEDICAL HISTORY : Hypertension. Gastroesophageal reflux disease SURGICAL HISTORY : Bilateral inguinal hernioplasty ENCOUNTER: Initial ACUITY: 3 weeks PAIN SCORE: 8/10 LOCATION: Bilateral chest FINDINGS: A single view of the chest demonstrates the lungs to be symmetrically aerated without evidence of mas s, infiltrate or effusion. The cardiomediastinal contours are unremarkable. Osseous structures are intact. CONCLUSION: No acute disease. Vahid Hare MD FACR on August 04, 2017 at 8:08 Board Certified Radiologist. This report was verified electronically.
[2017-08-04 08:15] LABS: ALKALINE PHOSPHATASE 59 U/L (45-117); BLOOD, URINE NEG (NEG); COMMENT (UR) CULT NOT INDICATED; CULTURE IF INDICATED CULT NOT INDICATED; GLUCOSE,URINE NEG (NEG); KETONE, URINE NEG (NEG); NITRITE,URINE NEG (NEG); TOTAL BILIRUBIN ADULT 0.5 MG/DL (0.2-1.0); URINE COLOR YELLOW (YELLW/STRAW)
[2017-08-04 08:21] VITALS: O2SAT 100
[2017-08-04 08:25] VITALS: BP 134/88; PULSE 80; RESP 17; O2SAT 100
== END 2017-08-04 09:32 | disposition home or self-care (01) ==
LOC: NEPE 04:10
DX: K29.70 Gastritis, unspecified, without bleeding (principal)
CPT/HCPCS: 71010; 80053; 81001; 83690; 85025; 99285; J7030

== ENCOUNTER 2018-01-12 20:29 | Emergency (ER) | payer SELFPAY ==
[2018-01-12 20:32] VITALS: BP 158/89; PULSE 87; RESP 16; TEMP 97.4
--- NOTE | 2018-01-12 21:43 | RADRPT ---
EXAM DATE/TIME: 01/12/2018 21:17 [facility] COMPARISON: No previous studies available for comparison. INDICATIONS : Right leg pain. MEDICAL HISTORY : Gastroesophageal reflux disease. Hypercholesterolemia. Hypertension. Anxiety. Kidney stones. SURGICAL HISTORY : Inguinal hernia repair. ENCOUNTER: Initial ACUITY: 1 week PAIN SCORE: 2/10 LOCATION: Right leg. TECHNIQUE: Venous ultrasound of the leg was performed from the inguinal ligament to the proximal calf. Real-siri e, color Doppler and spectral tracing, compression and augmentation techniques were used. FINDINGS: There is normal compressibility of the deep venous system from the inguinal region to the proximal ca lf. No echogenic clot is seen in the lumen of the common femoral, femoral, popliteal, and posterior tibial veins. There is a normal response of the venous system to proximal and distal augmentation an d respiration. CONCLUSION: 1. No DVT identified. Mario Hare MD on January 12, 2018 at 21:41 Board Certified Radiologist. This report was verified electronically.
--- NOTE | 2018-01-13 | PD ---
HPI Chief Complaint: Injury Time Seen by Provider: 23:48 Travel History International Travel<30 days: No Contact w/Intl Traveler<30days: No Traveled to known affect area: No History of Present Illness HPI 32-year-old white male presents to department for evaluation of right calf tenderness this past week. He states that approximately 3 weeks ago he had pain , swelling and warmth in his right forefoot. He states that he attempted to stay off it as much as possible over a two-week period and it had gradually improved. Now the past week he has noticed some discomfort in his calf. He states it just feels sore. It feels as if he had been working out. He denies any swelling. No warmth, redness, numbness or tingling. He denies any history of connective tissue disorders. No history of blood clots. He states that he has had a history of hypertension but has not been on medication due to finances. No chest pain or shortness of breath. PFSH Past Medical History Narrative Medical Anxiety, hypertension, hypercholesterolemia Anxiety: Yes Heart Rhythm Problems: No Cardiac Catheterization: No Cardiovascular Problems: Yes (HTN) High Cholesterol: Yes Congestive Heart Failure: No Diabetes: No Diminished Hearing: No GERD: Yes Genitourinary: Yes (kidney stones ) Hypertension: Yes Psychiatric: Yes (hx anxiety and panic attacks) Immunizations Current: Yes Tetanus Vaccination: > 5 Years Influenza Vaccination: No Past Surgical History Surgical History: No Previous Surgery Abdominal Surgery: Yes ([facility]. INGUINAL HERNIOPLASTY A CHILD) Coronary Artery Bypass Graft: No Genitourinary Surgery: Yes Social History Alcohol Use: Yes (WEEKENDS) Tobacco Use: Yes (1 PPD) Substance Use: Yes (MARIJUANA) Allergies-Medications (Allergen,Severity, Reaction): Coded Allergies: lisinopril (Unverified Allergy, Severe, HIVES, 08/04/17) "TATT00 LINES SWELL" acetaminophen (Unverified Adverse Reaction, Severe, NAUSEA, 08/04/17) codeine (Unverified Adverse Reaction, Severe, NAUSEA, 08/04/17) Reported Meds & Prescriptions Reported Meds & Active Scripts Active No Active Prescriptions or Reported Medications Review of Systems Except as stated in HPI: all other systems reviewed are Neg Physical Exam Narrative GENERAL: This is a well-nourished, well-developed patient, in no apparent distress. SKIN: No rashes, ecchymoses or lesions. Warm and dry. HEAD: Atraumatic. Normocephalic. EYES: PERRL, EOMI, no discharge or injection. No scleral icterus. EARS: Clear NOSE: Nasal turbinates appear normal. THROAT: Mucosa pink and moist. Airway patent. NECK: Trachea midline. supple, moves head freely. LUNGS: Clear to auscultation. CV: Regular in rhythm. ABDOMEN: Soft nontender. EXT: No clubbing cyanosis or edema. Examination the right lower leg compared to left lower leg. There is no difference in size, color, temperature. Sensation is intact. No Homans sign. The compartments are soft. He has good distal pulses. Data Data Last Documented VS Vital Signs Date Time Temp Pulse Resp B/P (MAP) Pulse Ox O2 Delivery O2 Flow Rate FiO2 01/12/18 21:08 18 01/12/18 20:32 97.4 87 158/89 (112) Room Air Orders Orders Us Leg Venous Doppler (01/12/18 ) Ed Discharge Order (01/12/18 23:56) MDM Medical Decision Making Medical Screen Exam Complete: Yes Emergency Medical Condition: Yes Medical Record Reviewed: Yes Interpretation(s) Last 24 hours Impressions Lower Extremity Ultrasound 01/12/18 0000 Signed Impressions: Service Date/Time: Friday, January 12, 2018 21:17 - CONCLUSION: 1. No DVT identified. Mario Hare MD Differential Diagnosis Differential diagnosis: Sprain, strain, gout, DVT, PVD Narrative Course Patient's ultrasound is negative for DVT. His exam is reassuring. There is no evidence of any is occlusive process. He is instructed to follow-up with the [facility] for blood pressure control. Patient agrees with treatment plan of follow-up. He is accompanied by his and child. Diagnosis Primary Impression: right calf strain Referrals: [facility] 1 week Patient Instructions: General Instructions Additional Instructions: Rest. Elevation. Tylenol or Advil for pain. Return to the ER if any problems. Med/Other Pt SpecificInfo: No Meds Exist/No RX given Scripts No Active Prescriptions or Reported Meds Disposition: 01 DISCHARGE HOME Condition: Stable Isaiah Harmon Jan 13, 2018 00:00
== END 2018-01-13 00:07 | disposition home or self-care (01) ==
LOC: NEPD 20:29
DX: S86.111A Strain of other muscle(s) and tendon(s) of posterior muscle group at lower leg level, right leg, initial encounter (principal); I10 Essential (primary) hypertension; E78.00 Pure hypercholesterolemia, unspecified; F41.9 Anxiety disorder, unspecified; F17.210 Nicotine dependence, cigarettes, uncomplicated; F12.90 Cannabis use, unspecified, uncomplicated; X58.XXXA Exposure to other specified factors, initial encounter
CPT/HCPCS: 93971